=== PATIENT | female | born 1980 | race Caucasian/White ===

== ENCOUNTER → 2019-01-19 | Outpatient (REF) | payer BC ==
[2019-01-19 13:02] LABS: HEMATOCRIT 43.7 % (36.0-47.0); HEMOGLOBIN 14.7 g/dl (12.0-15.5); MEAN CORPUSCULAR HGB CONC 33.6 g/dl (32.0-36.5); MEAN CORPUSCULAR VOLUME 92.2 fl (80.0-96.0); PLATELET COUNT, AUTOMATED 241 10^3/uL (150-450); RED BLOOD COUNT 4.74 10^6/uL (4.00-5.40); WHITE BLOOD COUNT 5.7 10^3/uL (4.0-10.0)
[2019-01-19 13:57] LABS: HCG, SERUM QUANTITATIVE 41587 MIU/ML; HEPATITIS C VIRUS ABY INDEX 0.1 INDEX (<0.8); HIV 1&2 SCREEN CENTAUR NEGATIVE (NEGATIVE); RUBELLA IgG QUALITATIVE IMMUNE (IMMUNE)
== END ==
LOC: M LAB REF 12:35
PROVIDERS: ATTEND Nurse Practitioner Women's Health
DX: Z34.81 Encounter for supervision of other normal pregnancy, first trimester (principal)

== ENCOUNTER → 2019-06-02 | Outpatient (CLI) | payer BC ==
[2019-06-02 11:42] LABS: HEMATOCRIT 39.2 % (36.0-47.0); HEMOGLOBIN 12.9 g/dl (12.0-15.5); MEAN CORPUSCULAR HEMOGLOBIN 32.4 pg (27.0-33.0); MEAN CORPUSCULAR HGB CONC 32.9 g/dl (32.0-36.5); MEAN CORPUSCULAR VOLUME 98.5 fl (80.0-96.0); PLATELET COUNT, AUTOMATED 162 10^3/uL (150-450); RED BLOOD COUNT 3.98 10^6/uL (4.00-5.40); WHITE BLOOD COUNT 6.9 10^3/uL (4.0-10.0)
== END ==
LOC: M LAB 09:39
PROVIDERS: ATTEND Nurse Practitioner Women's Health
DX: O09.522 Supervision of elderly multigravida, second trimester (principal)
CPT/HCPCS: 36415; 82950; 85027; 86850; 86901; J2790

== ENCOUNTER → 2019-07-26 | Outpatient (REF) | payer BC | LOC: M LAB REF 13:19 | PROVIDERS: ATTEND Obstetrics & Gynecology | DX: O09.513 Supervision of elderly primigravida, third trimester (principal) ==

== ENCOUNTER 2019-09-03 06:02 | Inpatient (IN) | payer BC ==
[2019-09-03] VITALS (32 sets, daily range): BP systolic 99–151; BP diastolic 53–94
[~2019-09-03] VITALS: Ht 162.6 cm; Wt 84.8 kg
[2019-09-03] MEDS ORDERED: AMPICILLIN SOD 1 GM in D5W MINI-BAG PLUS 100 ML IV SCH (07:45)
[2019-09-03] MEDS: LR 800 ML IV ONE ×2 (07:45→09:19)
[2019-09-03] MEDS ORDERED: TUMS500C PO (08:13)
[2019-09-03] MEDS ORDERED: PRENTAB9 PO (08:13)
[2019-09-03 08:15] LABS: HEMATOCRIT 41.9 % (36.0-47.0); HEMOGLOBIN 14.1 g/dl (12.0-15.5); MEAN CORPUSCULAR HEMOGLOBIN 32.4 pg (27.0-33.0); MEAN CORPUSCULAR HGB CONC 33.7 g/dl (32.0-36.5); MEAN CORPUSCULAR VOLUME 96.3 fl (80.0-96.0); PLATELET COUNT, AUTOMATED 142 10^3/uL (150-450); RED BLOOD COUNT 4.35 10^6/uL (4.00-5.40); WHITE BLOOD COUNT 6.3 10^3/uL (4.0-10.0)
[2019-09-03] MEDS ORDERED: AMPICILLIN SOD 2 GM in D5W MINI-BAG PLUS 100 ML IV ONE (08:30)
[2019-09-03] MEDS: LR 1,000 ML IV SCH ×2 (08:38→15:34)
[2019-09-03 09:03] LABS: ALT/SGPT 20 U/L (12-78); BILIRUBIN,TOTAL 0.4 MG/DL (0.2-1.0); CREATININE FOR GFR 0.72 MG/DL (0.55-1.30); GLOMERULAR FILTRATION RATE > 60.0 (>60); LDH LACTATE DEHYDROGENASE 188 U/L (84-246); URIC ACID 5.3 MG/DL (2.6-6.0)
[2019-09-03] MEDS: AMPICILLIN SOD 1 GM in D5W MINI-BAG PLUS 50 ML IV SCH ×2 (12:49→16:58)
[2019-09-03] MEDS ORDERED: OXYTOCIN DRIP 30 UNITS in IV 1 EA IV SCH ×2 (13:00→18:13)
[2019-09-03] MEDS ORDERED: FENTANYL 2MCG/ML ROPIVACAINE 0.2% IN 0.9% NACL 100ML IVBAG As Ordered ONE (14:02)
[2019-09-03] MEDS ORDERED: ONDANSETRON 4MG/2ML VIAL (J2405) IV PRN (14:45)
[2019-09-03] MEDS ORDERED: LACTATED RINGER'S 1000 ML IV PRN (14:45)
[2019-09-03] MEDS ORDERED: ePHEDrine SULFATE 25 MG/5 ML(5MG/ML) SYRINGE IV PRN (14:45)
[2019-09-03] MEDS ORDERED: EPIDURAL/PCA KEYS XX PRN (14:45)
[2019-09-03] MEDS ORDERED: NALOXONE INJ 0.4 MG/1 ML VIAL (J2310) IV PRN (14:45)
[2019-09-03] MEDS ORDERED: EPIDURAL COMMENT XX SCH (14:45)
[2019-09-03] MEDS ORDERED: FENTANYL/ROPIVACAINE/NACL BAG 100 ML EPIDURAL SCH (14:45)
[2019-09-03] MEDS ORDERED: REFRIGERATOR IV KEYS XX PRN (14:45)
[2019-09-03] MEDS ORDERED: diphenhydrAMINE INJ 50MG/ML VIAL (J1200) IV PRN (14:45)
[2019-09-03 17:44] LABS: CORD GAS ABE V -5.6; CORD GAS HCO3 V 22.9 MEQ/L; CORD GAS O2 SAT V 57.4 %; CORD GAS PCO2 V 55.7 mmHg; CORD GAS PH V 7.231 UNITS; CORD GAS TCO2 V 24.6 MEQ/L
[2019-09-03 17:48] LABS: CORD GAS ABE A -3.9; CORD GAS O2 SAT A 17.2 %; CORD GAS PCO2 A 68.3 mmHg; CORD GAS PH A 7.198 UNITS; CORD GAS PO2 A 11.6 mmHg; CORD GAS SBC A 19.3 MEQ/L; CORD GAS TCO2 A 28.1 MEQ/L
[2019-09-03] MEDS ORDERED: METHYLERGONOVINE MALEATE 0.2 MG TAB PO PRN (18:15)
[2019-09-03] MEDS ORDERED: DIBUCAINE 1% OINTMENT 30GM TOP PRN (18:15)
[2019-09-03] MEDS ORDERED: ACETAMINOPHEN 500 MG TAB PO PRN (18:15)
[2019-09-03] MEDS ORDERED: MEASLES,MUMPS,RUBELLA VACCINE INJ (MMR-II) (90707) SC SCH (18:15)
[2019-09-03] MEDS ORDERED: RHOGAM 300 MCG (1500 IU) INJ (J2790) IM SCH (18:15)
[2019-09-03] MEDS ORDERED: IBUPROFEN 800 MG TAB PO PRN (18:15)
[2019-09-03] MEDS: DOCUSATE SODIUM 100 MG CAP PO PRN (21:43)
[2019-09-04 05:45] VITALS: BP 122/73
--- NOTE | 2019-09-04 06:57 | HPE ---
DATE OF ADMISSION: 09/03/2019 Caitlin is a 38-year-old female, 2, para 1-0-0-1, with an expected date of confinement (EDC) of 08/29/2019, estimated gestational age (EGA) 40-5/7 weeks gestation who presents to labor and delivery for an induction. Upon evaluation in labor and delivery, she was found to be 3 cm, 70% effaced, fetus at -3 station. At this point, a decision was made to proceed with Pitocin induction. Her record was reviewed and essentially unremarkable. She initiated care during her first trimester. Her course was essentially unremarkable. LABS: Blood type is B negative, rubella immune, hepatitis negative, HIV negative, GC and chlamydia negative. 1-hour sugar testing was within normal limits. Her GBS was positive. PAST MEDICAL HISTORY: Denies. PAST SURGICAL HISTORY: Tooth extraction. SOCIAL HISTORY: She is . Denies any alcohol, drugs or cigarette smoking. REVIEW OF SYSTEMS: Unremarkable. MEDICATIONS: vitamin ALLERGIES: NO KNOWN DRUG ALLERGIES. PHYSICAL EXAMINATION: Normal-appearing female in no acute distress. Abdomen: Soft, nontender, nondistended. Extremities: No clubbing, cyanosis or edema. Vaginal Exam: 3 cm, 70% effaced, fetus at -3 station, vertex position. Tracing reviewed, category one tracing. ASSESSMENT: Intrauterine at 40 and 5/7 weeks gestation being admitted for induction. The patient in early labor. PLAN: Admit to labor and delivery. Routine labs sent. Induction process discussed. Will proceed with Pitocin induction. Ampicillin started for GBS prophylaxis. Pain management discussed. The patient opts for an epidural. Will continue to monitor. Anticipate delivery.
[2019-09-04] MEDS: PRENATAL VITAMINS CHEWABLE TABLET PO SCH (07:45)
[2019-09-04] MEDS: ACETAMINOPHEN TAB 650MG DOSE (2X325MG) PO PRN ×3 (07:45→21:59)
--- NOTE | 2019-09-04 08:09 | DN ---
DATE OF DELIVERY: 09/03/2019 Christi is a 38-year-old female 2, para 1-0-0-1 who was admitted at 40-5/7 weeks gestation in labor. She underwent Pitocin induction followed by a spontaneous rupture of membranes after an epidural. She then pushed and delivered a live male infant over a midline episiotomy. scores nine and nine. weight 7 pounds 13 ounces. Poor placental accreta noted, which was manually removed. The entire placenta was felt to be removed. Good hemostasis noted. Episiotomy was repaired using #2-0 chromic. Estimated blood loss 300 mL. Both mother and baby are in stable condition.
[2019-09-04 09:05] VITALS: BP 116/61
[2019-09-04] MEDS: IBUPROFEN 600 MG TAB PO PRN ×2 (10:35→19:49)
[2019-09-04 17:51] VITALS: BP 129/85
[2019-09-04] MEDS: DOCUSATE SODIUM 100 MG CAP PO PRN (21:57)
[2019-09-05 06:00] VITALS: BP 124/71
[2019-09-05] MEDS: PRENATAL VITAMINS CHEWABLE TABLET PO SCH (08:03)
[2019-09-05] MEDS: IBUPROFEN 600 MG TAB PO PRN (08:03)
== END 2019-09-05 15:50 | disposition home or self-care (01) | DRG 560 ==
LOC: M LDI 06:02 → M OBS 21:16
PROVIDERS: ADMIT Obstetrics & Gynecology; ATTEND Obstetrics & Gynecology
PROC: 10E0XZZ Delivery of Products of Conception, External Approach (ICD-10-PCS; principal; 2019-09-03)
PROC: 0W8NXZZ Division of Female Perineum, External Approach (ICD-10-PCS; 2019-09-03)
DX: O48.0 Post-term pregnancy (principal); Z3A.40 40 weeks gestation of pregnancy; Z37.0 Single live birth; O99.824 Streptococcus B carrier state complicating childbirth; O43.213 Placenta accreta, third trimester